=== PATIENT | female | born 1950 | race Caucasian/White ===

== ENCOUNTER 2017-09-22 14:18 | Inpatient (IN) | payer MEDICARE ==
[~2017-09-22] VITALS: Ht 167.6 cm
[2017-09-22] VITALS (12 sets, daily range): BP systolic 96–128; BP diastolic 58–74; BMI 22.1
--- NOTE | ~2017-09-22 | HEMODYNAMI ---
PATIENT:MADDI ALCANTAR MEDICAL RECORD: [id number] : 46 LOCATION:[facility] D.2110 ADMISSION DATE: 09/22/17 Generatedon:10/03/201716:35 Patient name: MADDI ALCANTAR Patient #: [id number] SSN: : 1 03/20/1949 Date of study: 10/03/2017 Page: Of Hemodynamic Procedure Report Patient Data Patient Demographics Procedure consent was obtained First Name: MADDI Gender: Female Last Name: KATHARINE : 1950 Patient #: [id number] Age: 67 year(s) Race: Unknown Additional ID: [id number] Contact details Address: [address] [place] [address] State: [place] City: [facility] [place], [place] Zip code: [address] Past Medical History Allergies Allergen Reaction Date Comments Reported Morphine 10/03/2017 Sulfa drugs 10/03/2017 Admission Admission Data Admission Date: 09/22/2017 Admission Time: 18:47 Room #: D.0 Weight (lbs.): 130 Weight (kg.): 58.97 Procedure Procedure Types Cath Procedure Peripheral Cath Diagnostic Procedure Cath Peripheral Abd/Extremity Extremities Right Lower Ext Arterio Procedure Description Procedure Date Procedure Date: 10/03/2017 Procedure Start Time: 14:26 Procedure Staff Name Function Manuel Goodman MD Performing Physician Carrie Lee RT Tool Grinding Technician Shahana Mcmahan RN Nurse Rossi Mueller RN Nurse Neal Benítez RT Scrub Naveen Sutherland POLICYHOLDER INFORMATION CLERK Additional personnel Laurent Lauren POLICYHOLDER INFORMATION CLERK Additional personnel Procedure Data Cath Procedure Fluoroscopy Diagnostic fluoroscopy Total fluoroscopy Time: 0 time: 0 min min Diagnostic fluoroscopy Total fluoroscopy dose: 181 dose: 181 mGy mGy Contrast Material Contrast Material Type Amount (ml) Isovue 300 95 Entry Location Entry Primary Successful Side Size Upsize Upsize Entry Closure Succes sful Closure Location (Fr) 1 (Fr) 2 (Fr) Remarks Device Remarks Femoral Left Mynx artery Hassock Maker 6Fr/7Fr Diagnostic catheters Device Type Used For End Catheter Placement DIAGNOSTIC IMT 5Fr Catheter ([id number]) Procedure Medications Medication Administration Route Dosage Oxygen etCO2 Nasal cannula 10 l/min Heparin Flush Bag added to field 3 bags (1000units/500ml NS) Lidocaine 1% added to field 20 Heparin Bolus I.V. 3000 units Heparin Bolus I.V. 1000 units Nitroglycerin IC/IA 250 mcg Hemodynamics Rest Heart Rate: 85 (bpm) Snapshots Pre Cath Intra NCS Post Cath Vital Signs Time Heart Resp SPO2 etCO2 NIBP (mmHg) Rhythm Pain Sedation Rate (ipm) (%) (mmHg) Status Level (bpm) 13:52:51 61 22 96 27.6 154/73(130) Paced 0 (11) 10(A) , No pain 13:57:50 61 8 99 26.1 Measuring Paced 0 (11) 10(A) , No pain 13:58:05 61 11 99 26.9 149/76(132) Paced 0 (11) 10(A) , No pain 14:02:29 60 29 93 17.2 161/75(125) Paced 0 (11) 10(A) , No pain 14:06:55 60 8 1.4 151/74(130) Paced 0 (11) 10(A) , No pain 14:11:21 60 11 74 29.1 146/73(122) Paced 0 (11) 10(A) , No pain 14:15:44 60 15 99 29.1 138/70(112) Paced 0 (11) 10(A) , No pain 14:20:08 60 19 96 20.9 139/72(106) Paced 0 (11) 9(A) , No pain 14:24:32 60 17 95 24.6 133/68(117) Paced 0 (11) 9(A) , No pain 14:28:50 60 18 96 26.1 118/63(99) Paced 0 (11) 8(A) , No pain 14:33:06 60 14 93 16.4 124/63(96) Paced 0 (11) 8(A) , No pain 14:37:22 60 29 92 26.1 116/61(98) Paced 0 (11) 8(A) , No pain 14:41:38 60 16 91 21.6 110/62(91) Paced 0 (11) 8(A) , No pain 14:45:50 60 23 93 19.4 119/72(99) Paced 0 (11) 8(A) , No pain 14:50:08 60 15 96 22.4 110/58(92) Paced 0 (11) 8(A) , No pain 14:54:25 60 17 95 14.2 102/56(86) Paced 0 (11) 8(A) , No pain 14:58:34 60 9 92 20.9 107/58(87) Paced 0 (11) 8(A) , No pain 15:02:44 60 17 93 14.9 122/68(95) Paced 0 (11) 8(A) , No pain 15:07:04 60 18 99 1.4 121/62(100) Paced 0 (11) 8(A) , No pain 15:11:23 60 19 98 5.2 118/63(98) Paced 0 (11) 8(A) , No pain 15:15:36 60 16 98 1.4 126/66(98) Paced 0 (11) 8(A) , No pain 15:19:54 59 22 98 9.7 124/61(105) Paced 0 (11) 8(A) , No pain 15:24:15 60 19 96 10.4 101/53(80) Paced 0 (11) 8(A) , No pain 15:28:24 60 19 96 4.4 101/55(82) Paced 0 (11) 8(A) , No pain 15:32:34 60 15 96 1.4 105/56(85) Paced 0 (11) 8(A) , No pain 15:36:44 60 20 96 0 104/59(85) Paced 0 (11) 8(A) , No pain 15:40:52 60 15 98 14.9 113/63(97) Paced 0 (11) 8(A) , No pain 15:45:04 60 16 97 2.9 110/59(89) Paced 0 (11) 8(A) , No pain 15:49:16 60 20 97 5.2 110/58(88) Paced 0 (11) 8(A) , No pain 15:53:26 59 19 97 0 116/63(99) Paced 0 (11) 8(A) , No pain 15:57:36 60 19 97 1.4 123/66(97) Paced 0 (11) 8(A) , No pain 16:01:48 60 16 97 8.2 139/73(109) Paced 0 (11) 8(A) , No pain 16:06:02 60 14 97 8.2 117/62(96) Paced 0 (11) 8(A) , No pain 16:10:16 60 21 97 8.9 114/58(98) Paced 0 (11) 8(A) , No pain 16:14:24 60 17 98 10.4 129/75(107) Paced 0 (11) 8(A) , No pain 16:19:23 60 20 97 11.2 Measuring Paced 0 (11) 8(A) , No pain 16:19:31 60 25 96 11.2 153/74(128) Paced 0 (11) 8(A) , No pain 16:23:49 60 18 99 11.2 129/67(97) Paced 0 (11) 8(A) , No pain 16:28:07 60 18 99 138/70(114) Paced 0 (11) 8(A) , No pain 16:32:25 9.7 136/77(111) Paced 0 (11) 8(A) , No pain Medications Time Medication Route Dose Verified Delivered Reason Notes E ffectiveness by by 14:16:00 Oxygen etCO2 10 l/min Manuel Cain Nasal Rex Mcmahan RN protocol cannula 14:16:24 Heparin Flush added 3 bags Manuel Jackson Per Bag to Rex Goodman protocol (1000units/500ml field MD EVANGELISTA NS) 14:18:20 Lidocaine 1% added 20ml vial Manuel Cain to Rex Goodman protocol field MD EVANGELISTA 14:34:03 Heparin Bolus I.V. 3000units Manuel Mcmahan RN protocol 15:22:59 Heparin Bolus I.V. 1000units Manuel Mcmahan RN protocol 15:23:20 Nitroglycerin 250 mcg Manuel Cain IC/IA Rex pozo MD, MD Procedure Log Time Note 12:43:46 Use device set IR Diagnostic 13:32:39 Micropuncture VSI 4FR kit opened to sterile field. 13:32:40 BENTSON 145cm wire (X12799) opened to sterile field. 13:32:41 SHEATH 5FR Napoleon (IFZ917) opened to sterile field. 13:32:43 TUBING Contrast Injection High Pressure ([id number]) opened to sterile field. 13:32:44 SHEATH 6FR Destination (RSR01) opened to sterile field. 13:32:45 Tegaderm 4 x 4 (1626W) opened to sterile field. 13:32:46 Sterile Angiographic Pack opened to sterile field. 13:32:47 Bag Decanter (2002S) opened to sterile field. 13:32:48 ACIST Manifold (55692) opened to sterile field. 13:32:49 ACIST Hand Control (21693) opened to sterile field. 13:32:50 ACIST Syringe (90601) opened to sterile field. 13:32:56 Time tracking: Regular hours (M-F 7:00 - 5:00) 13:34:27 Plan of Care:Hemodynamics will remain stable., Cardiac rhythm will remain stable., Comfort level will be maintained., Respiratory function will remain adequate., Patient/ family verbilizes understanding of procedure., Procedure tolerated without complication., Recovers from procedure without complications.. 13:34:39 Patient received from [employer] II to IR Alert and oriented. Tansferred to table in Supine position. 13:37:03 Correct patient and procedure confirmed by team. 13:37:06 Signed procedure consent form obtained from patient. 13:37:12 H&P Date Dictated: 10/03/2017 Within 30 days and on chart.. 13:37:15 Pre-procedure instructions explained to patient. 13:37:15 Pre-op teaching completed and patient verbalized understanding. 13:37:18 Family unavailable. 13:38:07 Patient NPO since Midnight. 13:38:18 Patient allergic to Morphine 13:38:25 Patient allergic to Sulfa drugs 13:38:29 Is the patient allergic to Iodine/contrast media? No. 13:38:32 Is patient on blood thinner?Yes 13:38:35 Patient diabetic? Yes. 13:38:37 If diabetic: On Metformin? No 13:38:40 - 13:38:40 ----Pre-sedation anethsthesia assessment.---- 13:38:44 Previous problem with sedation/anesthesia? No ? 13:38:47 Snore? No 13:38:50 Sleep apnea? No 13:38:54 Deviated septum? No 13:38:56 Opens mouth fully? Yes 13:38:59 Sticks out tongue? Yes 13:39:03 Airway obstruction? No ?but patient has chf and cad with pacemaker 13:39:41 Dentures? Yes out 13:40:02 IV patent on arrival in right hand with D5/.45%NaCl at [facility]. 13:40:09 Left groin area was prepped with chlora-prep and draped in sterile fashion 13:40:15 - 13:42:08 CHOICE PT Extra Support 182cm wire ([id number]) opened to sterile field. 13:42:25 PRADO 260 wire (O04122) opened to sterile field. 13:44:52 - 13:51:28 ECG and BP/O2 sat monitors applied to patient. 13:51:30 Vital chart was started 13:51:31 Baseline sample Acquired. 13:51:32 Full Disclosure recording started 13:51:33 - 13:51:43 Pre procedure: right dorsailis pedis pulse Doppler 14:15:43 A DIAGNOSTIC IMT 5Fr Catheter ([id number]) was advanced over the wire an d used for . 14:16:00 Oxygen 10 l/min etCO2 Nasal cannula was administered by Shahana babb RN; Per protocol; 14:16:06 ROADRUNNER .035 260 glide wire (X88135) opened to sterile field. 14:16:07 CXI SUPPORT .035 135 CM STR catheter (S59005) opened to sterile field. 14:16:24 Heparin Flush Bag (1000units/500ml NS) 3 bags added to field was administered by Manuel Goodman MD; Per protocol; 14:18:20 Lidocaine 1% 20ml vial added to field was administered by Manuel murphy MD; Per protocol; 14:19:18 Physician arrived 14:19:21 --------ALL STOP TIME OUT------ 14:19:22 Final Timeout: patient, procedure, and site verified with staff and physician. All members of the team are in agreement. 14:26:30 Procedure started. 14:26:32 Local anesthetic to left femerol artery with Lidocaine 1% by Manuel Goodman MD.INITIAL ACCESS ONLY 14:34:03 Heparin Bolus 3000units I.V. was administered by Shahana Mcmahan RN; Per protocol; 14:50:22 TORQUE DEVICE PLASTIC .038 ( TD01) opened to sterile field. 14:54:37 TRANSEND STEERABLE wire ([id number]) opened to sterile field. 15:01:17 INFLATOR BasixTOUCH (WF3625) opened to sterile field. 15:02:28 Inflate balloon Inflation number: 1 A [place] Plus 3 x 4 x 130 Balloon ([id number]) was prepped and advanced across the Undefined1, then inflated to 0 ELISA for 0:00 (min:sec). 15:03:48 Inflate balloon Inflation number: 1 A [place] Plus 3 x 2 x 130 Balloon ([id number]) was prepped and advanced across the Undefined2, then inflated to 0 ELISA for 0:00 (min:sec). 15:10:19 Inflate balloon Inflation number: 2 A CHOCOLATE 2.5 x 120 x 150 balloon ([id number]) was prepped and advanced across the Undefined1, then inflated to 0 ELISA for 0:00 (min:sec). 15:22:02 Hawkone Medium Atherectomy System (H1-M) opened to sterile field. 15:22:59 Heparin Bolus 1000units I.V. was administered by Shahana Mcmahan RN; Per protocol; 15:23:20 Nitroglycerin IC/IA 250 mcg was administered by Manuel Goodman MD; Per protocol; 15:32:00 Inflate balloon Inflation number: 2 A CHOCOLATE 4.0 x 40 x 135 balloon ([id number]) was prepped and advanced across the Undefined2, then inflated 15:35:47 SPIDER EMBOLIC PROTECTION DEVICE 4MM ([id number]) opened to sterile field. 15:56:56 Inflate balloon Inflation number: 3 A IN.PACT Admiral 5 x 150 x 130 DCB balloon ([id number]) was prepped and advanced across the Undefined2, then inflated to 0 ELISA for 0:00 (min:sec). 16:04:38 Inflate balloon Inflation number: 1 A IN.PACT Admiral 5 x 120 x 130 DCB Balloon ([id number]) was prepped and advanced across the Undefined3, then inflated to 0 ELISA for 0:00 (min:sec). 16:08:06 SHEATH 6FR Napoleon (JXW384) opened to sterile field. 16:18:10 MYNX MATERIAL ATTENDANT 6FR/7FR (XF7284) opened to sterile field. 16:18:51 A sheath was inserted into the Left Femoral artery 16:18:51 Sheath removed intact; hemostasis achieved with Mynx Hassock Maker 6Fr/7Fr to th e Left Femoral artery. 16:19:04 Contrast amount:Isovue 300 95ml. 16:19:11 Fluoroscopy time 00.00 minutes. 16:19:17 Fluoroscopy dose: 181 mGy 16:19:17 Flurop Dose total: 181 16:19:27 Patient Weight : 130 lbs 16:19:31 Procedure and supply charges have been captured, reviewed, submitted an d are correct. 16:20:07 Procedure ended.(Physican Out) 16:35:03 Report given to [employer] II. 16:35:39 Vital chart was stopped Intervention Summary Intervention Notes Time ActionType Lesion and Equipment Used Action# Pressure Duration Attributes 15:02:28 Inflate Undefined1 [place] Plus 3 x 1 0 00:00 balloon 4 x 130 Balloon ([id number]) 15:03:48 Inflate Undefined2 [place] Plus 3 x 1 0 00:00 balloon 2 x 130 Balloon ([id number]) 15:10:19 Inflate Undefined1 CHOCOLATE 2.5 x 2 0 00:00 balloon 120 x 150 balloon ([id number]) 15:32:00 Inflate Undefined2 CHOCOLATE 4.0 x 2 0 00:00 balloon 40 x 135 balloon ([id number]) 15:56:56 Inflate Undefined2 IN.PACT Admiral 5 3 0 00:00 balloon x 150 x 130 DCB balloon ([id number]) 16:04:38 Inflate Undefined3 IN.PACT Admiral 5 1 0 00:00 balloon x 120 x 130 DCB Balloon ([id number]) Device Usage Item Name Manufacture Quantity Catalog Number Hospital Part Curr ent Minimal Lot# / Charge Number Stock Stock Serial# Code Micropuncture VSI VSI VASCULAR 1 [id number] [id number] 6344 76 5 4FR kit SOLUTIONS BENTSON 145cm Cook Medical 1 E75117 421444 3875 38 5 wire (I73588) SHEATH 5FR Terumo 1 NRT646 498451 843630 6924 63 40 Napoleon (JUO811) TUBING Contrast Merit 1 [id number] 477714 628250 3798 65 5 Injection High Medical Pressure (GJS662Y) SHEATH 6FR Terumo 1 RSR01 388458 82353 9997 48 5 Destination (RSR01) Tegaderm 4 x 4 3M 1 1626W 911900 086380 5676 35 5 (1626W) Sterile Cardinal 1 [id number] 501871 2141 69 5 Angiographic Pack Health Bag Decanter Microtek 1 2001S 308337 24903 9894 35 5 () Medical Inc. ACIST Manifold Acist 1 25673 639237 649818 0219 85 5 (14211) Medical Systems Inc ACIST Hand Acist 1 55018 270335 862149 6355 67 5 Control (27091) Medical Systems Inc ACIST Syringe Acist 1 65198 310380 220487 1957 44 20 (38069) Medical Systems Inc CHOICE PT Extra [place] 1 [id number] 208135 348815 4253 09 5 Support 182cm Scientific wire (7270164P2) PRADO 260 wire Cook Medical 1 O45081 835765 75358 9996 91 5 9743282 (C63470) DIAGNOSTIC IMT [place] 1 [id number] 625198 842985 0097 7 5 [id number] 5Fr Catheter Scientific ([id number]) ROADRUNNER .035 Cook Medical 1 S94096 894692 829326 9723 62 5 7750358 260 glide wire (G07095) CXI SUPPORT .035 Cook Medical 1 P93205 109971 133050 0047 72 5 1414740 135 CM STR catheter (F75338) TORQUE DEVICE [place] 1 TD01 507185 692765 1712 68 5 PLASTIC .038 ( Scientific TD01) TRANSEND [place] 1 [id number] 006617 9278 23 5 STEERABLE wire Scientific ([id number]) INFLATOR Merit 1 XW7529 942908 157656 2411 74 5 Basixreadness.com Medical (QD7594) [place]a Plus 3 x Medtronic 1 [id number] 841127 424588 6950 98 5 [id number] 4 x 130 Balloon ([id number]) [place] Plus 3 x Medtronic 1 [id number] 519588 034293 6479 98 5 [id number] 2 x 130 Balloon ([id number]) CHOCOLATE 2.5 x Cardinal 1 [id number] O 450923 554444 2104 94 5 [id number] 120 x 150 balloon Health TW [id number] ([id number]) [id number] Hawkone Medium Medtronic 1 H1-M 968309 8493 9995 5 Atherectomy System (H1-M) CHOCOLATE 4.0 x Cardinal 1 [id number] O 130056 54177 9999 96 5 [id number] 40 x 135 balloon Health TW [id number] ([id number]) [id number] SPIDER EMBOLIC Medtronic 1 XLS2-UH-408-320 217344 4203 79 5 PROTECTION DEVICE 5MM ([id number]) IN.PACT Admiral 5 Medtronic 1 [id number] 797878 4410696 7234 83 5 [id number] x 150 x 130 DCB balloon ([id number]) IN.PACT Admiral 5 Medtronic 1 [id number] 381972 785911 5418 83 5 [id number] x 120 x 130 DCB Balloon ([id number]) SHEATH 6FR Terumo 1 LLE902 164774 498890 6626 06 40 Napoleon (GKA001) MYNX MATERIAL ATTENDANT 6FR/7FR Access 1 JS6074 058536 6220 40 5 [id number] (TR0263) Closure Signature Audit [place] Stage Time Signature Unsigned Intra-Procedure 10/03/2017 Carrie Lee 4:35:28 PM RT(R) [facility] [address] [place] [address]
[2017-09-22] MEDS ORDERED: RENAGEL800 MG PO (14:23)
[2017-09-22] MEDS ORDERED: PENTOXIFYLLINE400 MG PO (14:23)
[2017-09-22] MEDS ORDERED: ZOFRAN4 MG PO (14:24)
[2017-09-22] MEDS ORDERED: REGLAN5 MG PO (14:24)
[2017-09-22] MEDS ORDERED: CARDIZEM30 MG PO (14:25)
[2017-09-22] MEDS ORDERED: ZOLOFT25 MG PO (14:25)
[2017-09-22] MEDS ORDERED: ZOCOR40 MG PO (14:25)
[2017-09-22] MEDS ORDERED: XARELTO20 MG PO (14:26)
[2017-09-22] MEDS ORDERED: NEURONTIN 300300 MG PO (14:26)
[2017-09-22] MEDS ORDERED: COLACE100 MG PO (14:27)
[2017-09-22 15:30] LABS: ALBUMIN 2.1 g/dL (3.4-5.0); BILIRUBIN - TOTAL 0.34 mg/dL (0.2-1.3); CALCIUM 8.2 mg/dL (8.5-10.1); CARBON DIOXIDE 20.2 mmol/L (21.0-32.0); CREATININE - SERUM 4.9 mg/dL (0.6-1.3); POTASSIUM - SERUM 5.2 mmol/L (3.5-5.1); PROTEIN - SERUM 5.3 g/dL (6.4-8.2)
[2017-09-22 15:34] LABS: TROPONIN-I 0.057 ng/mL (0.000-0.060)
[2017-09-22 16:14] LABS: BASOPHILS 0.2 % (0-2); EOSINOPHILS 0.2 % (0-7); LYMPHOCYTES 10.9 % (15-50); MCH 31.4 pg (26.0-34.0); MCHC 30.8 g/dL (31.0-37.0); MCV 101.7 fL (80.0-100.0); MEAN PLATELET VOLUME 9.6 fL (7.4-10.4); MONOCYTES 8.2 % (2-11); NEUTROPHILS 79.5 % (40-80); PLATELET COUNT 198 10x3/uL (130-400); RDW 17.8 % (11.5-14.5); WBC 9.5 10x3/uL (4.8-10.8)
[2017-09-22 16:19] LABS: HEMOGLOBIN 3.7 g/dL (12-16); RBC 1.18 10x6/uL (4.00-5.40)
[2017-09-22 17:54] LABS: % SATURATION 96 % (15-55); IRON 129 ug/dl (35-150); TOTAL IRON BIND CAPACITY 134 ug/dl (260-445)
[2017-09-22 18:06] LABS: UNSAT IRON BIND CAPACITY 5 ug/dl (150-375)
[2017-09-22 18:31] LABS: APPEARANCE HAZY (CLEAR); BILIRUBIN NEGATIVE (NEGATIVE); COLOR YELLOW (YELLOW); GLUCOSE NEGATIVE (NEGATIVE); KETONE NEGATIVE (NEGATIVE); NITRITE NEGATIVE (NEGATIVE); PROTEIN 1+ mg/dL (NEGATIVE); UROBILINOGEN NORMAL (NORMAL)
[2017-09-22 18:37] LABS: BACTERIA MODERATE /hpf (NONE SEEN); EPITHELIAL CELLS 0-5 /hpf (0-5); RED CELLS - URINE 0-5 /hpf (0-5)
[2017-09-22 19:18] LABS: INR 2.57 (0.85-1.17); PROTIME 26.9 SECONDS (11.6-15.0)
[2017-09-23] VITALS (22 sets, daily range): BP systolic 96–145; BP diastolic 58–94; Ht 167.6 cm
[2017-09-23 04:29] LABS: BASOPHILS 0.3 % (0-2); IMMATURE GRANULOCYTES 0.9 % (0-5); LYMPHOCYTES 14.6 % (15-50); MCH 30.5 pg (26.0-34.0); MCHC 32.4 g/dL (31.0-37.0); MEAN PLATELET VOLUME 10.1 fL (7.4-10.4); MONOCYTES 10.1 % (2-11); NEUTROPHILS 73.1 % (40-80); PLATELET COUNT 164 10x3/uL (130-400); RDW 17.8 % (11.5-14.5); WBC 7.8 10x3/uL (4.8-10.8)
[2017-09-23 04:53] LABS: ALBUMIN 2.2 g/dL (3.4-5.0); ANION GAP 17.2 mmol/L (8-16); BILIRUBIN - TOTAL 0.54 mg/dL (0.2-1.3); CALCIUM 7.9 mg/dL (8.5-10.1); CREATININE - SERUM 5.2 mg/dL (0.6-1.3); HEMATOCRIT 18.8 % (36.0-48.0); HEMOGLOBIN 6.1 g/dL (12-16); PHOSPHOROUS 7.6 mg/dL (2.5-4.9); POTASSIUM - SERUM 4.8 mmol/L (3.5-5.1); PROTEIN - SERUM 5.2 g/dL (6.4-8.2)
[2017-09-23 04:58] LABS: CARBON DIOXIDE 25.6 mmol/L (21.0-32.0)
[2017-09-23 14:53] LABS: HEMATOCRIT 36.5 % (36.0-48.0); HEMOGLOBIN 12.3 g/dL (12-16)
[2017-09-23 21:55] LABS: HEMATOCRIT 40.1 % (36.0-48.0); HEMOGLOBIN 13.6 g/dL (12-16)
[2017-09-24] VITALS (50 sets, daily range): BP systolic 64–131; BP diastolic 49–81
[2017-09-24 03:50] LABS: BASOPHILS 0.2 % (0-2); EOSINOPHILS 0.9 % (0-7); HEMATOCRIT 36.2 % (36.0-48.0); HEMOGLOBIN 12.2 g/dL (12-16); IMMATURE GRANULOCYTES 1.2 % (0-5); LYMPHOCYTES 7.8 % (15-50); MCH 30.2 pg (26.0-34.0); MCHC 33.7 g/dL (31.0-37.0); MEAN PLATELET VOLUME 9.8 fL (7.4-10.4); NEUTROPHILS 80.9 % (40-80); RDW 17.8 % (11.5-14.5)
[2017-09-24 03:51] LABS: ANION GAP 12.8 mmol/L (8-16); CALCIUM 8.2 mg/dL (8.5-10.1); CARBON DIOXIDE 30.9 mmol/L (21.0-32.0)
[2017-09-24 04:00] LABS: CREATININE - SERUM 3.4 mg/dL (0.6-1.3); MCV 89.6 fL (80.0-100.0); PLATELET COUNT 120 10x3/uL (130-400); POTASSIUM - SERUM 3.7 mmol/L (3.5-5.1); RBC 4.04 10x6/uL (4.00-5.40)
[2017-09-24 04:05] LABS: INR 1.24 (0.85-1.17); PROTIME 15.2 SECONDS (11.6-15.0)
[2017-09-24 12:08] LABS: APPEARANCE CLOUDY (CLEAR); BILIRUBIN NEGATIVE (NEGATIVE); COLOR YELLOW (YELLOW); GLUCOSE NEGATIVE (NEGATIVE); KETONE NEGATIVE (NEGATIVE); NITRITE NEGATIVE (NEGATIVE); PH 7.5 (5.0-6.0); PROTEIN 1+ mg/dL (NEGATIVE); SPECIFIC GRAVITY 1.005 (1.005-1.020); UROBILINOGEN NORMAL (NORMAL)
[2017-09-24 12:14] LABS: BACTERIA MANY /hpf (NONE SEEN); EPITHELIAL CELLS 0-5 /hpf (0-5); RED CELLS - URINE 0-5 /hpf (0-5); WHITE CELLS - URINE >50 /hpf (0-5)
[2017-09-24 15:36] LABS: HEMATOCRIT 33.8 % (36.0-48.0); HEMOGLOBIN 11.2 g/dL (12-16)
[2017-09-25] VITALS (19 sets, daily range): BP systolic 84–121; BP diastolic 51–65
[2017-09-25 01:00] LABS: HEMATOCRIT 34.2 % (36.0-48.0); HEMOGLOBIN 11.4 g/dL (12-16)
[2017-09-25 04:29] LABS: HEMATOCRIT 34.7 % (36.0-48.0); HEMOGLOBIN 11.4 g/dL (12-16)
[2017-09-25 13:29] LABS: HEMATOCRIT 34.1 % (36.0-48.0); HEMOGLOBIN 11.3 g/dL (12-16)
[2017-09-25 21:12] LABS: HEMATOCRIT 34.1 % (36.0-48.0); HEMOGLOBIN 11.1 g/dL (12-16)
[2017-09-26] VITALS (14 sets, daily range): BP systolic 103–129; BP diastolic 52–83
[2017-09-26 04:10] LABS: BASOPHILS 0.3 % (0-2); EOSINOPHILS 2.7 % (0-7); HEMATOCRIT 34.4 % (36.0-48.0); HEMOGLOBIN 11.3 g/dL (12-16); IMMATURE GRANULOCYTES 0.9 % (0-5); MCH 29.9 pg (26.0-34.0); MCHC 32.8 g/dL (31.0-37.0); MEAN PLATELET VOLUME 10.3 fL (7.4-10.4); MONOCYTES 9.7 % (2-11); NEUTROPHILS 73.4 % (40-80); PLATELET COUNT 99 10x3/uL (130-400); RBC 3.78 10x6/uL (4.00-5.40); RDW 18.6 % (11.5-14.5)
[2017-09-26 04:20] LABS: WBC 6.4 10x3/uL (4.8-10.8)
[2017-09-26 04:45] LABS: ANION GAP 16.6 mmol/L (8-16); BILIRUBIN - TOTAL 0.44 mg/dL (0.2-1.3); CALCIUM 7.7 mg/dL (8.5-10.1); CARBON DIOXIDE 23.5 mmol/L (21.0-32.0); PHOSPHOROUS 6.2 mg/dL (2.5-4.9); PROTEIN - SERUM 5.3 g/dL (6.4-8.2)
[2017-09-26 04:52] LABS: POTASSIUM - SERUM 3.1 mmol/L (3.5-5.1)
[2017-09-27 04:59] VITALS: BP 131/80
[2017-09-27 06:05] LABS: BASOPHILS 0.2 % (0-2); EOSINOPHILS 3.4 % (0-7); HEMATOCRIT 37.7 % (36.0-48.0); HEMOGLOBIN 12.5 g/dL (12-16); IMMATURE GRANULOCYTES 0.5 % (0-5); LYMPHOCYTES 12.8 % (15-50); MCH 30.8 pg (26.0-34.0); MCHC 33.2 g/dL (31.0-37.0); MCV 92.9 fL (80.0-100.0); MEAN PLATELET VOLUME 10.5 fL (7.4-10.4); MONOCYTES 10.5 % (2-11); NEUTROPHILS 72.6 % (40-80); PLATELET COUNT 93 10x3/uL (130-400); RBC 4.06 10x6/uL (4.00-5.40); RDW 19.2 % (11.5-14.5); WBC 5.6 10x3/uL (4.8-10.8)
[2017-09-27 06:30] LABS: ANION GAP 13.8 mmol/L (8-16); BILIRUBIN - TOTAL 0.48 mg/dL (0.2-1.3); CALCIUM 7.9 mg/dL (8.5-10.1); CARBON DIOXIDE 28.5 mmol/L (21.0-32.0); POTASSIUM - SERUM 3.3 mmol/L (3.5-5.1); PROTEIN - SERUM 5.6 g/dL (6.4-8.2)
[2017-09-27 06:31] LABS: CREATININE - SERUM 3.4 mg/dL (0.6-1.3)
[2017-09-27 07:31] LABS: PLATELET ESTIMATE DECREASED
[2017-09-27 08:27] VITALS: BP 132/60
[2017-09-27 12:02] VITALS: BP 120/63
[2017-09-27 15:27] LABS: HEMATOCRIT 38.1 % (36.0-48.0); HEMOGLOBIN 12.5 g/dL (12-16)
[2017-09-27 15:56] VITALS: BP 121/58
[2017-09-27 20:15] VITALS: BP 127/61
[2017-09-28 05:28] VITALS: BP 140/65
[2017-09-28 06:02] LABS: BASOPHILS 0.5 % (0-2); EOSINOPHILS 4.2 % (0-7); HEMATOCRIT 36.9 % (36.0-48.0); HEMOGLOBIN 11.9 g/dL (12-16); IMMATURE GRANULOCYTES 0.7 % (0-5); LYMPHOCYTES 15.9 % (15-50); MCH 30.1 pg (26.0-34.0); MCHC 32.2 g/dL (31.0-37.0); MCV 93.4 fL (80.0-100.0); MONOCYTES 12.2 % (2-11); NEUTROPHILS 66.5 % (40-80); PLATELET COUNT 111 10x3/uL (130-400); RBC 3.95 10x6/uL (4.00-5.40); RDW 19.4 % (11.5-14.5); WBC 5.7 10x3/uL (4.8-10.8)
[2017-09-28 06:12] LABS: BILIRUBIN - TOTAL 0.44 mg/dL (0.2-1.3); CALCIUM 7.8 mg/dL (8.5-10.1); CREATININE - SERUM 4.2 mg/dL (0.6-1.3); PHOSPHOROUS 5.2 mg/dL (2.5-4.9); PROTEIN - SERUM 5.5 g/dL (6.4-8.2)
[2017-09-28 06:16] LABS: ANION GAP 14.8 mmol/L (8-16); POTASSIUM - SERUM 3.8 mmol/L (3.5-5.1)
[2017-09-28 09:12] VITALS: BP 125/73
[2017-09-28 12:08] VITALS: BP 129/64
[2017-09-28 20:39] VITALS: BP 110/59
[2017-09-29] VITALS: BP 114/61
[2017-09-29 04:00] VITALS: BP 117/58
[2017-09-29 05:49] LABS: INR 1.29 (0.85-1.17); PROTIME 15.6 SECONDS (11.6-15.0)
[2017-09-29 06:10] LABS: ALBUMIN 2.1 g/dL (3.4-5.0); ANION GAP 13.6 mmol/L (8-16); BILIRUBIN - TOTAL 0.43 mg/dL (0.2-1.3); CARBON DIOXIDE 25.8 mmol/L (21.0-32.0); CREATININE - SERUM 3.2 mg/dL (0.6-1.3); POTASSIUM - SERUM 3.4 mmol/L (3.5-5.1); PROTEIN - SERUM 5.5 g/dL (6.4-8.2)
[2017-09-29 06:37] LABS: BASOPHILS 0.3 % (0-2); EOSINOPHILS 2.7 % (0-7); HEMATOCRIT 38.3 % (36.0-48.0); HEMOGLOBIN 12.4 g/dL (12-16); IMMATURE GRANULOCYTES 0.5 % (0-5); LYMPHOCYTES 14.3 % (15-50); MCH 30.2 pg (26.0-34.0); MCHC 32.4 g/dL (31.0-37.0); MCV 93.4 fL (80.0-100.0); MEAN PLATELET VOLUME 11.3 fL (7.4-10.4); MONOCYTES 9.4 % (2-11); NEUTROPHILS 72.8 % (40-80); PLATELET COUNT 91 10x3/uL (130-400); RDW 18.8 % (11.5-14.5); WBC 6.4 10x3/uL (4.8-10.8)
[2017-09-29 08:36] VITALS: BP 119/54
[2017-09-29 12:33] VITALS: BP 120/65
[2017-09-29 17:21] VITALS: BP 138/79
[2017-09-29 21:09] VITALS: BP 115/72
[2017-09-30 05:46] LABS: BASOPHILS 0.3 % (0-2); EOSINOPHILS 2.2 % (0-7); HEMATOCRIT 39.9 % (36.0-48.0); HEMOGLOBIN 12.8 g/dL (12-16); IMMATURE GRANULOCYTES 0.1 % (0-5); LYMPHOCYTES 11.5 % (15-50); MCH 30.1 pg (26.0-34.0); MCHC 32.1 g/dL (31.0-37.0); MCV 93.9 fL (80.0-100.0); MEAN PLATELET VOLUME 11.1 fL (7.4-10.4); MONOCYTES 8.8 % (2-11); NEUTROPHILS 77.1 % (40-80); PLATELET COUNT 102 10x3/uL (130-400); RBC 4.25 10x6/uL (4.00-5.40); RDW 19.2 % (11.5-14.5); WBC 7.4 10x3/uL (4.8-10.8)
[2017-09-30 05:50] VITALS: BP 110/62
[2017-09-30 06:28] LABS: ALBUMIN 2.2 g/dL (3.4-5.0); ANION GAP 12.9 mmol/L (8-16); BILIRUBIN - TOTAL 0.47 mg/dL (0.2-1.3); PHOSPHOROUS 4.9 mg/dL (2.5-4.9); POTASSIUM - SERUM 3.9 mmol/L (3.5-5.1); PROTEIN - SERUM 5.3 g/dL (6.4-8.2)
[2017-09-30 06:29] LABS: CREATININE - SERUM 4.3 mg/dL (0.6-1.3)
[2017-09-30 08:25] VITALS: BP 109/67
[2017-09-30 15:22] VITALS: BP 108/69
[2017-09-30 20:08] LABS: OVA + PARASITE EXAM Final report (())
[2017-09-30 20:22] VITALS: BP 115/70
[2017-10-01] VITALS: BP 125/68
[2017-10-01 06:32] LABS: BASOPHILS 0.2 % (0-2); EOSINOPHILS 2.1 % (0-7); HEMATOCRIT 40.6 % (36.0-48.0); HEMOGLOBIN 12.8 g/dL (12-16); IMMATURE GRANULOCYTES 0.2 % (0-5); LYMPHOCYTES 10.2 % (15-50); MCHC 31.5 g/dL (31.0-37.0); MCV 95.1 fL (80.0-100.0); MONOCYTES 9.8 % (2-11); NEUTROPHILS 77.5 % (40-80); PLATELET COUNT 84 10x3/uL (130-400); RBC 4.27 10x6/uL (4.00-5.40); RDW 19.2 % (11.5-14.5)
[2017-10-01 06:33] LABS: WBC 10.3 10x3/uL (4.8-10.8)
[2017-10-01 06:35] VITALS: BP 115/65
[2017-10-01 06:58] LABS: ALBUMIN 2.1 g/dL (3.4-5.0); ANION GAP 10.6 mmol/L (8-16); BILIRUBIN - TOTAL 0.47 mg/dL (0.2-1.3); CALCIUM 8.1 mg/dL (8.5-10.1); CARBON DIOXIDE 28.2 mmol/L (21.0-32.0); CREATININE - SERUM 3.8 mg/dL (0.6-1.3); POTASSIUM - SERUM 3.8 mmol/L (3.5-5.1); PROTEIN - SERUM 5.7 g/dL (6.4-8.2)
[2017-10-01 07:53] VITALS: BP 112/69
[2017-10-01 11:57] VITALS: BP 105/64
[2017-10-01 15:20] VITALS: BP 103/55
[2017-10-01 19:00] VITALS: BP 112/68
[2017-10-02 00:29] VITALS: BP 126/68
[2017-10-02 05:06] VITALS: BP 104/52
[2017-10-02 05:07] LABS: BASOPHILS 0.2 % (0-2); EOSINOPHILS 1.8 % (0-7); HEMATOCRIT 39.5 % (36.0-48.0); HEMOGLOBIN 12.7 g/dL (12-16); IMMATURE GRANULOCYTES 0.2 % (0-5); LYMPHOCYTES 9.9 % (15-50); MCH 30.2 pg (26.0-34.0); MCHC 32.2 g/dL (31.0-37.0); MCV 93.8 fL (80.0-100.0); MEAN PLATELET VOLUME 11.6 fL (7.4-10.4); MONOCYTES 8.5 % (2-11); NEUTROPHILS 79.4 % (40-80); PLATELET COUNT 97 10x3/uL (130-400); RBC 4.21 10x6/uL (4.00-5.40); RDW 18.9 % (11.5-14.5); WBC 9.6 10x3/uL (4.8-10.8)
[2017-10-02 05:30] LABS: ANION GAP 13.4 mmol/L (8-16); BILIRUBIN - TOTAL 0.52 mg/dL (0.2-1.3); CALCIUM 7.6 mg/dL (8.5-10.1); CARBON DIOXIDE 26.5 mmol/L (21.0-32.0); CREATININE - SERUM 4.6 mg/dL (0.6-1.3); PHOSPHOROUS 4.8 mg/dL (2.5-4.9); POTASSIUM - SERUM 3.9 mmol/L (3.5-5.1); PROTEIN - SERUM 5.5 g/dL (6.4-8.2)
[2017-10-02 08:43] VITALS: BP 111/589
[2017-10-02 13:35] VITALS: BP 110/52
[2017-10-02 16:17] VITALS: BP 108/49
[2017-10-02 21:24] VITALS: BP 126/53
[2017-10-03] VITALS (8 sets, daily range): BP systolic 133–166; BP diastolic 55–84
[2017-10-03 05:36] LABS: BASOPHILS 0.3 % (0-2); EOSINOPHILS 1.8 % (0-7); HEMATOCRIT 38.8 % (36.0-48.0); HEMOGLOBIN 12.5 g/dL (12-16); IMMATURE GRANULOCYTES 0.3 % (0-5); LYMPHOCYTES 12.9 % (15-50); MCH 30.4 pg (26.0-34.0); MCHC 32.2 g/dL (31.0-37.0); MCV 94.4 fL (80.0-100.0); MEAN PLATELET VOLUME 11.5 fL (7.4-10.4); MONOCYTES 9.3 % (2-11); NEUTROPHILS 75.4 % (40-80); RBC 4.11 10x6/uL (4.00-5.40); RDW 19.2 % (11.5-14.5); WBC 7.9 10x3/uL (4.8-10.8)
[2017-10-03 05:42] LABS: PLATELET COUNT 120 10x3/uL (130-400)
[2017-10-03 06:04] LABS: ALBUMIN 2.1 g/dL (3.4-5.0); ANION GAP 16.6 mmol/L (8-16); BILIRUBIN - TOTAL 0.46 mg/dL (0.2-1.3); CALCIUM 7.7 mg/dL (8.5-10.1); CARBON DIOXIDE 23.4 mmol/L (21.0-32.0); CREATININE - SERUM 5.6 mg/dL (0.6-1.3); PROTEIN - SERUM 5.6 g/dL (6.4-8.2)
[2017-10-03 13:37] LABS: APTT 36.7 SECONDS (22.8-39.4); INR 1.3 (0.85-1.17); PROTIME 15.5 SECONDS (11.6-15.0)
[2017-10-04 04:17] VITALS: BP 137/52
[2017-10-04 05:57] LABS: BASOPHILS 0.2 % (0-2); EOSINOPHILS 0.7 % (0-7); HEMATOCRIT 43.7 % (36.0-48.0); IMMATURE GRANULOCYTES 0.2 % (0-5); LYMPHOCYTES 8.7 % (15-50); MCH 30.6 pg (26.0-34.0); MCV 95.6 fL (80.0-100.0); MEAN PLATELET VOLUME 11.3 fL (7.4-10.4); MONOCYTES 9.1 % (2-11); NEUTROPHILS 81.1 % (40-80); PLATELET COUNT 121 10x3/uL (130-400); RBC 4.57 10x6/uL (4.00-5.40); RDW 19.7 % (11.5-14.5)
[2017-10-04 06:26] LABS: ALBUMIN 2.1 g/dL (3.4-5.0); ANION GAP 16.2 mmol/L (8-16); BILIRUBIN - TOTAL 0.56 mg/dL (0.2-1.3); CALCIUM 7.7 mg/dL (8.5-10.1); CARBON DIOXIDE 23.3 mmol/L (21.0-32.0); CREATININE - SERUM 4.6 mg/dL (0.6-1.3); PHOSPHOROUS 6.1 mg/dL (2.5-4.9); POTASSIUM - SERUM 4.5 mmol/L (3.5-5.1)
[2017-10-04 08:13] VITALS: BP 117/56
[2017-10-04 16:32] VITALS: BP 120/71
[2017-10-04 21:04] VITALS: BP 114/51
[2017-10-05 05:33] VITALS: BP 109/53
[2017-10-05 05:37] LABS: BASOPHILS 0.4 % (0-2); HEMATOCRIT 38.9 % (36.0-48.0); HEMOGLOBIN 12.5 g/dL (12-16); IMMATURE GRANULOCYTES 0.1 % (0-5); LYMPHOCYTES 14.7 % (15-50); MCH 30.7 pg (26.0-34.0); MCHC 32.1 g/dL (31.0-37.0); MCV 95.6 fL (80.0-100.0); MEAN PLATELET VOLUME 11.5 fL (7.4-10.4); MONOCYTES 14.8 % (2-11); PLATELET COUNT 141 10x3/uL (130-400); RBC 4.07 10x6/uL (4.00-5.40); RDW 19.5 % (11.5-14.5); WBC 8.3 10x3/uL (4.8-10.8)
[2017-10-05 06:08] LABS: ALBUMIN 2.1 g/dL (3.4-5.0); ANION GAP 16.4 mmol/L (8-16); BILIRUBIN - TOTAL 0.5 mg/dL (0.2-1.3); CALCIUM 7.4 mg/dL (8.5-10.1); CARBON DIOXIDE 22.7 mmol/L (21.0-32.0); CREATININE - SERUM 5.5 mg/dL (0.6-1.3); POTASSIUM - SERUM 4.1 mmol/L (3.5-5.1); PROTEIN - SERUM 5.7 g/dL (6.4-8.2)
[2017-10-05] MEDS ORDERED: PLAVIX75 MG PO (07:39)
[2017-10-05] MEDS ORDERED: BETAPACE 120 M120 MG PO (07:40)
[2017-10-05] MEDS ORDERED: CARDIZEM30 MG PO (07:42)
[2017-10-05 07:43] VITALS: BP 107/48
[2017-10-05] MEDS ORDERED: PEPCID20 MG PO (09:01)
[2017-10-05 11:30] VITALS: BP 108/50
== END 2017-10-05 17:53 | disposition home health service (06) | DRG 356 ==
LOC: D.ER 14:18 → D.ICU 18:47 → D.M2 18:47 → D.EDHOLD 18:47 → D.ICU 19:14 → D.M2 09-26 22:00
PROVIDERS: Family Medicine; Internal Medicine Gastroenterology; Internal Medicine Nephrology; Radiology Diagnostic Radiology; Radiology Vascular & Interventional Radiology
PROC: B41G1ZZ Fluoroscopy of Left Lower Extremity Arteries using Low Osmolar Contrast (ICD-10-PCS; principal; 2017-09-26)
PROC: B41F1ZZ Fluoroscopy of Right Lower Extremity Arteries using Low Osmolar Contrast (ICD-10-PCS; 2017-09-26)
PROC: 047K3Z1 Dilation of Right Femoral Artery using Drug-Coated Balloon, Percutaneous Approach (ICD-10-PCS; 2017-10-03)
PROC: 04CK3ZZ Extirpation of Matter from Right Femoral Artery, Percutaneous Approach (ICD-10-PCS; 2017-10-03)
PROC: 04CM3ZZ Extirpation of Matter from Right Popliteal Artery, Percutaneous Approach (ICD-10-PCS; 2017-10-03)
PROC: 047P3ZZ Dilation of Right Anterior Tibial Artery, Percutaneous Approach (ICD-10-PCS; 2017-10-03)
DX: A04.72 Enterocolitis due to Clostridium difficile, not specified as recurrent (principal); N18.6 End stage renal disease; K92.2 Gastrointestinal hemorrhage, unspecified; N39.0 Urinary tract infection, site not specified; D62 Acute posthemorrhagic anemia; I70.92 Chronic total occlusion of artery of the extremities; Z99.2 Dependence on renal dialysis; D63.1 Anemia in chronic kidney disease; R00.0 Tachycardia, unspecified; Z95.0 Presence of cardiac pacemaker; R10.32 Left lower quadrant pain; I70.291 Other atherosclerosis of native arteries of extremities, right leg